=== PATIENT | male | born 1995 | race Hispanic/Latino ===

== ENCOUNTER 2017-04-17 09:37 | Emergency (ER) | payer SELFPAY ==
[~2017-04-17] VITALS: Ht 180.3 cm; Wt 130.0 kg
[2017-04-17] MEDS ORDERED: NAPROSYN500 MG PO (11:06)
[2017-04-17 11:26] VITALS: BP 120/60
== END 2017-04-17 11:20 | disposition home or self-care (01) | DRG 605 ==
LOC: ED 09:37
DX: S20.212A Contusion of left front wall of thorax, initial encounter (principal); W11.XXXA Fall on and from ladder, initial encounter; Y93.89 Activity, other specified; Y92.89 Other specified places as the place of occurrence of the external cause